=== PATIENT | male | born 1960 | race American Indian/Alaskan Native ===

== ENCOUNTER 2020-04-27 13:17 | Emergency (ER) | payer OTHER ==
[~2020-04-27 13:17] MED LIST: AMIODARONE 150 MG/3 ML INJ IV ONE; EPINEPHrine 1 MG/10 ML SYRINGE ONE; SODIUM BICARB 8.4% 50 MEQ/50 ML SYRINGE IV ONE
--- NOTE | 2020-04-27 13:29 | Emergency Department Report ---
ED CPR HPI - General Stated Complaint: CARDIAC ARREST Time Seen by Provider: 04/27/20 13:23 Source: EMS - History of Present Illness Initial Comments: Patient is 60 years old male, unknown past medical history. Patient brought to the emergency room via EMS from home in a full cardiac arrest, CPR in progress. EMS stated that patient called 911 stating that she found him unresponsive in his bed. EMS stated that upon arrival patient is in asystole. ACLS protocol immediately initiated by EMS. Initial rhythm was asystole. EMS stated that patient had change in rhythm to V. fib and shocked 3 times with no change and no return of circulation. Upon arrival to the ER, ACLS protocol continued. Patient already had a Carlos airway in place with good breath sound on both side. On EMS stretcher patient had a run of V. fib and he was shocked again and given 300 mg of IV amiodarone with no return of circulation and patient remain in PEA and then change to asystole. Patient pronounced at 1:18 PM. No family available at this moment. For further information please refer to code sheet. Complaint: found unresponsive -: unknown Place: home Bystander CPR Performed: No AED Applied by Bystander/Hot Blaster: Yes Shock Advised: Yes Number of Shocks Delivered: >3 Initial Findings in the Field: no pulse, systole, VTACH/VFIB ROSC in the Field: No Associated Injuries: No Treatments Prior to Arrival: other airway device (carlos airway), chest compressions, epinephrine mgs # (3) ED Review of Systems ROS: Stated complaint: CARDIAC ARREST Other details as noted in HPI Comment: Unobtainable due to pts medical conditions ED Physical Exam - General General appearance: other (CPR in progress.) - Head Head exam: Present: atraumatic - Eye Pupils: Present: other (5 mm fixed and dilated.) - Respiratory Respiratory exam: Present: other (No spontaneous breathing.) - Cardiovascular Cardiovascular Exam: Present: other (No spontaneous heart tone.) - GI/Abdominal GI/Abdominal exam: Present: soft - Neurological Exam Neurological exam: Present: other (CPR in progress) Critical Care Time: Yes Critical care time in (mins) excluding proc time.: 30 Critical care attestation.: If time is entered above; I have spent that time in minutes in the direct care of this critically ill patient, excluding procedure time. ED Disposition Clinical Impression: Cardiopulmonary arrest Disposition: DC-20 Is pt being admited?: No Condition: Stable
== END 2020-04-27 20:30 ==
LOC: ED 13:17
DX: I46.9 Cardiac arrest, cause unspecified (principal)
CPT/HCPCS: 92950; 99285; J0171; J0282